=== PATIENT | male | born 1975 | race Two or more races ===

== ENCOUNTER 2019-12-15 08:53 | Inpatient (IN) | payer OTHER ==
[~2019-12-15] VITALS: Ht 175.3 cm; Wt 85.7 kg
[2019-12-15] MEDS ORDERED: ZESTRIL10 M1 (09:06)
[2019-12-15] MEDS ORDERED: METFORMIN HCL500 M3 (09:06)
[2019-12-15] MEDS ORDERED: CRESTOR5 MG (09:07)
[2019-12-15] MEDS ORDERED: TORADOL60 MG (09:07)
--- NOTE | 2019-12-15 09:07 | NUR ---
SE RECIBE PTE AMBULANDO ALERTA Y ORIENTADO X3 QUIEN REFIERE DOLOR EN ESPALDA BAJA Y COSTADOS. PTE REFIERE HX DE CALCULOS RENALES. INDICA QUE EL VIERNES FUE A LA FRANCK DE EMERGENCIAS DE LAWLER ERASMO EN DONDE LE BRINDARON TRATAMIENTO. EL LUNES 3 LE REALIZARON LITROTRIPCIA DE LADO R+. PTE UN PRESENTA DOLOR Y VOMITOS. SE UBICA A PTE EN AREA DE OBSERVACION PARA SER EVALUADO POR MEDICO.
--- NOTE | 2019-12-15 10:06 | NUR ---
PACIENTE ALERTA Y ORIENTADO POR ERIKA ESFERAS EN COMPANIA DE FAMILIAR. SE ORIENTA A PACIENTE SOBRE PROCEDIMIENTO Y TX, REFIERE ENTENDER. SE EXTRAE MUESTRAS DE LABORAORIO CON MEDIDAS ASEPTICAS Y SE ADMINISTRA MEDICAMENTOS EUGENE ORDEN MEDICA.
== END 2019-12-17 11:38 | disposition home or self-care (01) | DRG 641 ==
LOC: ER 08:53 → EDSEX 08:57 → MEDI 16:14
PROVIDERS: ADMIT Urology
DX: E86.0 Dehydration (principal); N20.1 Calculus of ureter; N20.2 Calculus of kidney with calculus of ureter; Z98.890 Other specified postprocedural states

== ENCOUNTER → 2024-01-28 | Emergency (ER) | payer OTHER ==
[~2024-01-28] MED LIST: CRESTOR5 MG; METFORMIN HCL500 M3; TORADOL60 MG; WELLBUTRIN XL150 M1 PO; ZESTRIL10 M1
== END | disposition left against medical advice (07) ==
LOC: ER 18:27
DX: Z53.21 Procedure and treatment not carried out due to patient leaving prior to being seen by health care provider (principal)

== ENCOUNTER 2024-01-30 06:19 | Inpatient (IN) | payer OTHER ==
[~2024-01-30] VITALS: Ht 175.3 cm; Wt 88.5 kg
[~2024-01-30 06:19] MED LIST changes: -WELLBUTRIN XL150 M1 PO
--- NOTE | 2024-01-30 06:23 | NUR ---
PACIENTE ALERTA Y ORIENTAOD X 3. REFIERE ORDENES DE DR RICK GARCIA PARA SER EVALUADO POR DR LANDERS POR BILATERAL NEPHUROLITHISIS.
[2024-01-30] MEDS ORDERED: WELLBUTRIN XL150 M1 PO (06:27)
--- NOTE | 2024-01-30 06:46 | NUR ---
SE PRESENTA EKG Y REFERIDO A DR COTO. SE COLOCA PACIENTE EN PASILLO EN ESPERA A EVALUACION MEDICA Y QUE PACIENTE LE SEA NOTIFICADO A DR LANDERS.
--- NOTE | 2024-01-30 07:24 | NUR ---
SE ORIENTA PTE SOBRE TX A SEGUIR, EL CUAL REFIERE ENTENDER. SE COLECTAN MUESTRAS Y SE CANALIZA PTE UTILIZANDO MEDIDAS ASEPTICAS. SE HACE ENTREGA DE ENVASE PARA MUESTRA DE UA PEND. PEND. X-RAY
[2024-01-30] MEDS ORDERED: ONDANSETRON HCL 2 MG/ML VIAL IV PRN (07:30)
[2024-01-30 07:54] LABS: HEMATOCRIT 43.3 % (39.0-48.0); HEMOGLOBIN 14.9 g/dL (13-16.00); MEAN CELL VOLUME 94.1 fL (80.0-100.00); MEAN CORPUSCULAR HEMOGLOBIN 32.3 pg (27.00-32.0); MEAN CORPUSCULAR HGB CONC 34.4 g/dl (32.0-36.0); PLATELET COUNT 237 K/uL (150-450); RED BLOOD COUNT 4.61 M/uL (4.00-6.00); RED CELL DISTRIBUTION WIDTH 12.4 % (11.5-14.5)
[2024-01-30 08:08] LABS: PH,URINE 5.5 (5.0-8.0); URINE APPEARANCE Clear; URINE BILIRRUBIN Negative (NEGATIVE); URINE BLOOD Negative; URINE COLOR Yellow; URINE GLUCOSE Negative (NEGATIVE); URINE LEUKOCYTE Negative; URINE NITRATE Negative; URINE PROTEIN Negative (NEGATIVE); URINE UROBILINOGEN 0.2 E.U./dl
[2024-01-30 08:11] LABS: URINE BACTERIA 8.8 uL (0.0-1933); URINE EPITHELIAL CELLS 2.9 uL (0.0-38.8); URINE RBC 3.1 uL (0.0-20.8); URINE WBC 9.2 uL (0.0-23.2)
[2024-01-30 08:18] LABS: ALBUMIN 4.1 gm/dL (3.4-5.0); BILIRUBIN TOTAL 0.74 mg/dL (0.3-1.2); CALCIUM 9.2 mg/dL (8.5-10.1); CREATININE SERUM 1.04 mg/dL (0.70-1.30); GFR 75.9; GLOBULINA 3.8 G/DL (2.4-3.5); POTASSIUM 4.24 mEq/L (3.5-5.1); TOTAL PROTEIN 7.9 gm/dL (6.4-8.2)
[2024-01-30 09:05] LABS: INR 0.98; PARTIAL THROMBOPLASTIN TIME 26.3 SECONDS (22.0-34.0); PROTHROMBIN TIME 10.3 SECONDS (9.0-11.5)
[2024-01-30] MEDS ORDERED: IOVERSOL 320 MG/ML - 50 ML VIAL IV ONE (17:07)
[2024-01-30] MEDS ORDERED: POVIDONE-IODINE 118 ML BOTT TOP ONE (17:08)
[2024-01-30] MEDS ORDERED: CEFTRIAXONE SODIUM 2,000 MG VIAL ONE (17:09)
[2024-01-30] MEDS ORDERED: CEFTRIAXONE SODIUM 2,000 MG VIAL IV ONE (18:00)
[2024-01-30] MEDS ORDERED: CHLORHEXIDINE GLUCONATE 120 ML BOTTLE TOP ONE (18:00)
[2024-01-30] MEDS ORDERED: ONDANSETRON HCL 2 MG/ML VIAL ONE (19:38)
[2024-01-30] MEDS ORDERED: KETOROLAC TROMETHAMINE 30 MG VIAL IV ONE (21:15)
[2024-01-30] MEDS ORDERED: OxyCODONE HCL/APAP UD (PERCOCET) PO PRN (22:45)
[2024-01-31] MEDS ORDERED: PHENAZOPYRIDINE HCL 100 MG TABLET PO SCH (09:00)
== END 2024-01-31 11:31 | disposition home or self-care (01) | DRG 661 ==
LOC: ER 06:20 → SEC-K 08:07 → SURG 08:07
PROVIDERS: ADMIT Urology; ATTEND Urology
PROC: 0T768DZ Dilation of Right Ureter with Intraluminal Device, Via Natural or Artificial Opening Endoscopic (ICD-10-PCS; 2024-01-30)
PROC: 0TF68ZZ Fragmentation in Right Ureter, Via Natural or Artificial Opening Endoscopic (ICD-10-PCS; principal; 2024-01-30 14:00)
DX: N20.1 Calculus of ureter (principal); Z20.822 Contact with and (suspected) exposure to COVID-19

== ENCOUNTER 2024-06-12 14:42 | Inpatient (IN) | payer OTHER ==
[~2024-06-12] VITALS: Ht 175.3 cm; Wt 87.1 kg
[~2024-06-12 14:42] MED LIST changes: +WELLBUTRIN XL150 M1 PO
[2024-06-12] MEDS ORDERED: WELLBUTRIN SR100 MG PO (15:06)
[2024-06-12] MEDS ORDERED: KETOROLAC TROMETHAMINE 30 MG VIAL IV ONE (15:45)
[2024-06-12] MEDS ORDERED: KETOROLAC TROMETHAMINE 30 MG VIAL ONE (15:50)
[2024-06-12 16:26] LABS: PH,URINE 5.5 (5.0-8.0); URINE APPEARANCE Clear; URINE BILIRRUBIN Negative (NEGATIVE); URINE BLOOD Large; URINE COLOR Yellow; URINE KETONE Negative (NEGATIVE); URINE LEUKOCYTE Trace; URINE NITRATE Negative; URINE PROTEIN Trace (NEGATIVE); URINE UROBILINOGEN 0.2 E.U./dl
[2024-06-12 16:26] LABS: HEMATOCRIT 41.6 % (39.0-48.0); HEMOGLOBIN 14.3 g/dL (13-16.00); MEAN CELL VOLUME 95.3 fL (80.0-100.00); MEAN CORPUSCULAR HEMOGLOBIN 32.7 pg (27.00-32.0); MEAN CORPUSCULAR HGB CONC 34.3 g/dl (32.0-36.0); PLATELET COUNT 263 K/uL (150-450); RED BLOOD COUNT 4.36 M/uL (4.00-6.00); RED CELL DISTRIBUTION WIDTH 12.4 % (11.5-14.5)
[2024-06-12 16:29] LABS: URINE BACTERIA 60.4 uL (0.0-1933); URINE RBC 41.6 uL (0.0-20.8); URINE WBC 52.9 uL (0.0-23.2)
[2024-06-12 16:33] LABS: URINE CAST 0.61 uL (0.0-1.40); URINE GLUCOSE 100 MG/DL (NEGATIVE)
[2024-06-12 16:43] LABS: ALBUMIN 3.9 gm/dL (3.4-5.0); BILIRUBIN TOTAL 0.64 mg/dL (0.3-1.2); CALCIUM 9.8 mg/dL (8.5-10.1); CREATININE SERUM 1.3 mg/dL (0.70-1.30); GFR 58.43; GLOBULINA 3.9 G/DL (2.4-3.5); POTASSIUM 3.78 mEq/L (3.5-5.1); TOTAL PROTEIN 7.8 gm/dL (6.4-8.2)
[2024-06-12] MEDS ORDERED: SODIUM CHLORIDE 0.45 % 500 ML IV ONE (18:30)
[2024-06-12] MEDS ORDERED: TRAMADOL HCL 50 MG TABLET PO ONE (19:30)
[2024-06-12] MEDS ORDERED: TAMSULOSIN HCL 0.4 MG CAP PO ONE (19:30)
[2024-06-12] MEDS ORDERED: CIPROFLOXACIN IN 5 % DEXTROSE 400 MG/200 ML PIGGYBAG IV ONE ×2 (20:13→20:15)
[2024-06-12] MEDS ORDERED: INSULIN LISPRO 1,000 UNIT/10 ML UNITS SUBCUTANEO PRN (20:15)
[2024-06-12] MEDS ORDERED: 0.9 % SODIUM CHLORIDE 1,000 ML IV SCH (20:15)
[2024-06-12] MEDS ORDERED: DEXTROSE 50 % IN WATER 0.5 G/ML DISP.SYRIN IV PRN (20:15)
[2024-06-12] MEDS ORDERED: MORPHINE SULFATE 2 MG/ML CARTRIDGE IV PRN (20:15)
[2024-06-12] MEDS ORDERED: ACETAMINOPHEN 500 MG GEL..CAP PO PRN (20:15)
[2024-06-12] MEDS ORDERED: ONDANSETRON HCL 4 MG in 0.9 % SODIUM CHLORIDE 50 ML IV PRN (20:15)
[2024-06-12] MEDS ORDERED: hydrALAZINE HCL 20 MG VIAL IV PRN (20:30)
[2024-06-12] MEDS ORDERED: FAMOTIDINE/PF 20 MG in 0.9 % SODIUM CHLORIDE 8 ML IV PUSH SCH (21:00)
[2024-06-12] MEDS ORDERED: CIPROFLOXACIN IN 5 % DEXTROSE 200 ML IV SCH (21:00)
[2024-06-12] MEDS ORDERED: FAMOTIDINE/PF 20 MG/2 ML VIAL ONE (21:40)
[2024-06-13 07:08] LABS: ALBUMIN 3.6 gm/dL (3.4-5.0); ALKALINE PHOSPHATASE 59 U/L (50-136); ALT/SGPT 25 U/L (12-78); ANION GAP 11 (10.0-20.0); AST/SGOT 6 U/L (15-37); BILIRUBIN TOTAL 0.72 mg/dL (0.3-1.2); BILIRUBIN,CONJUGATED 0.15 mg/dL (0.0-0.2); BILIRUBIN,UNCONJUGATED 0.57 mg/dL (0.0-0.6); BLOOD UREA NITROGEN 24 mg/dL (7-18); BUN CREA RATIO 27 (7.0-25.0); CALCIUM 9.1 mg/dL (8.5-10.1); CARBON DIOXIDE 26 mEq/L (21-32); CHLORIDE 106 mmol/L (98-107); CHOL HDL RATIO 2.3 (0-5.0); CHOLESTEROL 131 mg/dL (0-200); CREATININE SERUM 0.89 mg/dL (0.70-1.30); GFR 90.48; GLOBULINA 3.4 G/DL (2.4-3.5); GLUCOSE FASTING 113 mg/dL (65-100); HDL 57 mg/dl (40-60); LDL 55 mg/dl (0-130); OSMOLALITY SERUM 282 MOSM/KG (275-295); POTASSIUM 4.25 mEq/L (3.5-5.1); SODIUM 139 mmol/L (136-145); TRIGLYCERIDES 94 mg/dL (0-150); VLDL 18 (0-39)
[2024-06-13 07:16] LABS: PARTIAL THROMBOPLASTIN TIME 26.9 SECONDS (22.0-34.0); PROTHROMBIN TIME 10.5 SECONDS (9.0-11.5)
[2024-06-13 07:24] LABS: C-REACTIVE PROTEIN < 0.29 MG/DL (0.00-0.29)
[2024-06-13 07:50] LABS: HEMOGLOBIN 14.2 g/dL (13-16.00); MEAN CELL VOLUME 95.9 fL (80.0-100.00); MEAN CORPUSCULAR HEMOGLOBIN 33.2 pg (27.00-32.0); MEAN CORPUSCULAR HGB CONC 34.7 g/dl (32.0-36.0); PLATELET COUNT 245 K/uL (150-450); RED BLOOD COUNT 4.27 M/uL (4.00-6.00); RED CELL DISTRIBUTION WIDTH 12.3 % (11.5-14.5)
[2024-06-13 08:44] LABS: PH,URINE 5.5 (5.0-8.0); URINE APPEARANCE Clear; URINE BILIRRUBIN Negative (NEGATIVE); URINE BLOOD Moderate; URINE COLOR Yellow; URINE GLUCOSE Negative (NEGATIVE); URINE KETONE Negative (NEGATIVE); URINE LEUKOCYTE Trace; URINE NITRATE Negative; URINE PROTEIN Negative (NEGATIVE); URINE UROBILINOGEN 0.2 E.U./dl
[2024-06-13 08:45] LABS: URINE BACTERIA 6.2 uL (0.0-1933); URINE EPITHELIAL CELLS 9.7 uL (0.0-38.8); URINE RBC 37.7 uL (0.0-20.8); URINE WBC 39.5 uL (0.0-23.2)
[2024-06-13 08:54] LABS: ERYTHROCYTE SEDIMENTATION RATE 35 mm/hr
[2024-06-13] MEDS ORDERED: TAMSULOSIN HCL 0.4 MG CAP PO SCH (09:00)
[2024-06-13] MEDS ORDERED: PATIENTS OWN MEDICATION (MEDICAMENTO EN PISO) PO SCH (09:00)
[2024-06-13] MEDS ORDERED: ENOXAPARIN SODIUM 40 MG/0.4 ML SYRINGE SUBCUTANEO SCH (09:00)
[2024-06-13] MEDS ORDERED: LISINOPRIL 10 MG TABLET PO SCH (09:00)
[2024-06-14] MEDS ORDERED: PATIENTS OWN MEDICATION (MEDICAMENTO EN PISO) PO SCH (09:00)
[2024-06-14] MEDS ORDERED: FAMOtidine 20 MG TABLET PO SCH (21:00)
== END 2024-06-15 10:52 | disposition home or self-care (01) | DRG 661 ==
LOC: ER 14:43 → MEDI 20:45
PROVIDERS: General Practice; Nurse Practitioner Family; ADMIT Urology; ATTEND Urology
PROC: BW21ZZZ Computerized Tomography (CT Scan) of Abdomen and Pelvis (ICD-10-PCS; 2024-06-12)
PROC: 0T778DZ Dilation of Left Ureter with Intraluminal Device, Via Natural or Artificial Opening Endoscopic (ICD-10-PCS; principal; 2024-06-14)
PROC: 0TC78ZZ Extirpation of Matter from Left Ureter, Via Natural or Artificial Opening Endoscopic (ICD-10-PCS; 2024-06-14)
DX: N13.5 Crossing vessel and stricture of ureter without hydronephrosis (principal); N20.1 Calculus of ureter

== ENCOUNTER 2025-07-29 11:00 | Day surgery (SDC) | payer OTHER ==
[2025-07-28 10:18] VITALS: BP 130/80
[2025-07-28 10:58] LABS: COVID-19 AG NEGATIVE (NEGATIVE)
[2025-07-28 11:16] LABS: BUN CREA RATIO 14.0 (7.0-25.0); CREATININE SERUM 1.42 mg/dL (0.70-1.30); GFR 52.56; OSMOLALITY SERUM 283.0 MOSM/KG (275-295)
[2025-07-28 11:17] LABS: GLUCOSE FASTING 219.0 mg/dL (65-100)
[~2025-07-29] VITALS: Ht 175.3 cm; Wt 88.5 kg
[~2025-07-29 11:00] MED LIST changes: +POTASSIUM; +WELLBUTRIN SR100 MG PO
[2025-07-29] MEDS ORDERED: GENTAMICIN SULFATE 40 MG/ML VIAL ONE (11:51)
[2025-07-29] MEDS ORDERED: IOVERSOL 320 MG/ML - 50 ML VIAL IV ONE (14:03)
[2025-07-29] MEDS ORDERED: PHENAZOPYRIDINE HCL 100 MG TABLET PO STA (15:29)
[2025-07-29] MEDS ORDERED: TAMSULOSIN HCL 0.4 MG CAP PO STA (15:30)
[2025-07-29] MEDS ORDERED: KETOROLAC TROMETHAMINE 30 MG VIAL IV ONE (15:30)
[2025-07-29] MEDS ORDERED: PHENAZOPYRIDINE HCL 100 MG TABLET PO ONE (20:04)
[2025-07-29] MEDS ORDERED: TAMSULOSIN HCL 0.4 MG CAP PO ONE (20:04)
[2025-07-29] MEDS ORDERED: KETOROLAC TROMETHAMINE 30 MG VIAL ONE (20:11)
== END 2025-07-29 22:10 | disposition home or self-care (01) ==
LOC: CIR.AMB 11:00
PROVIDERS: ATTEND Urology
DX: N20.1 Calculus of ureter (principal); Z88.0 Allergy status to penicillin